=== PATIENT | male | born 1950 | race Caucasian/White ===

== ENCOUNTER → 2017-01-23 | Outpatient (CLI) | payer MEDICARE, BC ==
[~2017-01-23] MED LIST: ASPI-496 PO; CHOL20003 PO; DOXA2TAB9 PO; ENAL2.5T PO; EZET10TA3 PO; FURO20TA3 PO; LEVO75TA PO; METO25TA91 PO; MIRA25TA PO; OMEP40CA6 PO; POTA20TA91 PO; REGADENOSON 0.4 MG/5 ML SYRINGE ONE
== END | disposition home or self-care (01) ==
LOC: CFH 12:29
PROVIDERS: ATTEND Internal Medicine Cardiovascular Disease
DX: R07.9 Chest pain, unspecified (principal); Z95.1 Presence of aortocoronary bypass graft
CPT/HCPCS: 78452; 93017; A9502; J2785

== ENCOUNTER 2017-07-17 14:27 | Inpatient (IN) | payer MEDICARE, BC ==
[~2017-07-17] VITALS: Ht 172.7 cm; Wt 100.4 kg
[~2017-07-17 14:27] MED LIST changes: +CHOL2000 PO; -CHOL20003 PO; +DEXAMETHASONE 4 MG/ML, 1ML ONE; +EZET10TA18 PO; -EZET10TA3 PO; +ONDANSETRON 2MG/ML, 2ML ONE; +PHENYLEPHRINE 10 MG/ML ONE; -REGADENOSON 0.4 MG/5 ML SYRINGE ONE; +SUCCINYLCHOLINE 20 MG/ML, 10ML ONE
[2017-07-17] MEDS ORDERED: LACTATED RINGERS 1,000 ML IV SCH (14:59)
[2017-07-17] MEDS ORDERED: LIDOCAINE 1%, 2ML SQ PRN (15:00)
[2017-07-17] MEDS ORDERED: CYAN50003 PO (15:12)
[2017-07-17] MEDS ORDERED: CARV3.122 PO (15:12)
[2017-07-17] MEDS ORDERED: FLUT50DI INH (15:12)
[2017-07-17] MEDS ORDERED: FOLI-17 PO (15:12)
[2017-07-17] MEDS ORDERED: ACID1TAB PO (15:12)
[2017-07-17] MEDS ORDERED: CALC500T PO (15:12)
[2017-07-17] MEDS ORDERED: IRON15TA3 PO (15:12)
[2017-07-17 15:13] VITALS: BP 132/82
[2017-07-17] MEDS: PLEASE ENTER HEIGHT AND WEIGHT MC SCH ×2 (15:30→16:05)
[2017-07-17] MEDS ORDERED: FENTANYL PF 250 MCG/5ML ONE (16:04)
[2017-07-17] MEDS ORDERED: BACITRACIN 50,000 UNIT ONE (16:07)
[2017-07-17] MEDS ORDERED: PROPOFOL 10 MG/ML, 20ML ONE ×2 (16:07)
[2017-07-17 16:28] LABS: ALBUMIN 2.8 g/dL (3.4-5.0); ANION GAP 6 mmol/L (5-15); CALCIUM 8.9 mg/dL (8.5-10.1); CHLORIDE 108 mmol/L (98-107)
[2017-07-17] MEDS ORDERED: PNEUMOCOCCAL 23 VACCINE IM-VACC ONE (16:30)
[2017-07-17 16:33] LABS: ALANINE AMINOTRANSFERASE 48 U/L (12-78); ALKALINE PHOSPHATASE 280 U/L (45-117); BILIRUBIN,TOTAL 2.3 mg/dL (0.2-1.0); CREATININE 1.07 mg/dL (0.7-1.3); TOTAL PROTEIN 7.4 g/dL (6.4-8.2)
[2017-07-17 16:44] LABS: MD YES; MEAN CORPUSCULAR HEMOGLOBIN 37.5 pg (27.5-34.5); MEAN CORPUSCULAR HGB CONC 34.1 g/dL (33.2-36.2); MEAN CORPUSCULAR VOLUME 109.9 fL (81-97); MEAN PLATELET VOLUME 7.2 fL (7.4-10.4); PLATELET COUNT 71 x10^3/uL (130-400); RED BLOOD COUNT 3.26 x10^6/uL (4.38-5.82); RED CELL DISTRIBUTION WIDTH 16.6 % (9.4-14.8)
[2017-07-17 16:47] LABS: EOS#(MANUAL) 0.18 x10^3/uL (0.0-0.4); EOS% (MANUAL) 7 % (1-7); LYMPH#(MANUAL) 0.49 x10^3/uL (1-3.4); LYMPHS% (MANUAL) 19 % (22-44); MONOS#(MANUAL) 0.23 x10^3/uL (0.3-2.7); MONOS% (MANUAL) 9 % (2-9); SEG#(MANUAL) 1.69 x10^3/uL (1.8-6.8); SEGS% (MANUAL) 65 % (42-75)
[2017-07-17 16:48] LABS: <PLATELET ESTIMATE> DECREASED; <PLT MORPHOLOGY> NORMAL PLT MORPH; ANISOCYTOSIS 1+; POLYCHROMASIA 1+
[2017-07-17] MEDS ORDERED: HYDROmorphone 1 MG/ML, 1ML IV PRN (17:00)
[2017-07-17] MEDS ORDERED: ONDANSETRON 2MG/ML, 2ML IVPush PRN (17:00)
[2017-07-17] MEDS ORDERED: ACETAMINOPHEN 325 MG TABLET PO PRN (17:00)
[2017-07-17] MEDS ORDERED: OXYcodone 5 MG/5 ML ORAL.SOL UDC PO PRN (17:00)
[2017-07-17] MEDS ORDERED: FENTANYL PF 100 MCG/2ML IV PRN (17:00)
[2017-07-17] MEDS ORDERED: VANCOMYCIN 1,000 MG ONE (17:16)
[2017-07-17] MEDS ORDERED: OXYcodone 5 MG/5 ML ORAL.SOL UDC ONE (17:53)
[2017-07-17] MEDS ORDERED: ACETAMINOPHEN 650 MG/20.3 ML UDC ONE (17:53)
[2017-07-17] MEDS ORDERED: FLUTICASONE PROPIONATE INH PRN (19:30)
[2017-07-17 20:06] LABS: MEAN CORPUSCULAR HEMOGLOBIN 37.7 pg (27.5-34.5); MEAN CORPUSCULAR VOLUME 110.8 fL (81-97); MEAN PLATELET VOLUME 7.1 fL (7.4-10.4); PLATELET COUNT 64 x10^3/uL (130-400); RED BLOOD COUNT 3.13 x10^6/uL (4.38-5.82); RED CELL DISTRIBUTION WIDTH 16.4 % (9.4-14.8)
[2017-07-17 20:10] VITALS: BP 166/82
[2017-07-17 20:30] LABS: BASOPHILS # (AUTO) 0.01 x10^3/uL (0-0.1); BASOPHILS % (AUTO) 0 % (0-1); EOSINOPHILS # (AUTO) 0.06 x10^3/uL (0-0.4); EOSINOPHILS % (AUTO) 2 % (1-7); LYMPHOCYTES # (AUTO) 0.46 x10^3/uL (1-3.4); LYMPHOCYTES % (AUTO) 18 % (22-44); MD SCAN; MONOCYTES # (AUTO) 0.13 x10^3/uL (0.2-0.8); MONOCYTES % (AUTO) 5 % (2-9); NEUTROPHILS # (AUTO) 1.95 x10^3/uL (1.8-6.8); NEUTROPHILS % (AUTO) 75 % (42-75)
[2017-07-17] MEDS: POTASSIUM CHLORIDE 20 MEQ TAB.ER.PRT PO SCH (21:00)
[2017-07-17] MEDS: SODIUM CHLORIDE FLUSH 10ML SYR IVF SCH (21:00)
[2017-07-17] MEDS ORDERED: ONDANSETRON ODT 4 MG PO PRN (21:30)
[2017-07-17] MEDS: FUROSEMIDE 20 MG TABLET PO SCH (21:38)
[2017-07-17] MEDS: CARVEDILOL 3.125 MG TABLET PO SCH (21:39)
[2017-07-17] MEDS: CALCIUM CARBONATE 500 MG TABLET PO SCH (21:39)
[2017-07-17] MEDS: ASPIRIN 81 MG TABLET EC PO SCH (21:39)
[2017-07-17] MEDS ORDERED: morphine SULFATE 10 MG/ML, 1ML IVPush PRN (23:00)
[2017-07-17] MEDS ORDERED: VANCOMYCIN PMX 1GM/200ML 200 ML IV ONE (23:30)
[2017-07-18 02:02] VITALS: BP 132/71
[2017-07-18] MEDS: LEVOTHYROXINE 75 MCG TABLET PO SCH (05:44)
[2017-07-18 06:29] LABS: ALBUMIN 2.5 g/dL (3.4-5.0); ANION GAP 7 mmol/L (5-15); CALCIUM 8.9 mg/dL (8.5-10.1); CHLORIDE 109 mmol/L (98-107)
[2017-07-18 06:36] LABS: ALANINE AMINOTRANSFERASE 44 U/L (12-78); ALKALINE PHOSPHATASE 207 U/L (45-117); CREATININE 0.97 mg/dL (0.7-1.3); TOTAL PROTEIN 6.8 g/dL (6.4-8.2)
[2017-07-18] MEDS: OMEPRAZOLE 20 MG CAPSULE.DR PO SCH (07:30)
[2017-07-18 07:32] VITALS: BP 132/69
[2017-07-18] MEDS: CALCIUM CARBONATE 500 MG TABLET PO SCH ×2 (08:59→20:06)
[2017-07-18] MEDS: ASPIRIN 81 MG TABLET EC PO SCH ×2 (09:00→20:06)
[2017-07-18] MEDS: FOLIC ACID 1 MG TABLET PO SCH (09:00)
[2017-07-18] MEDS: FLUTICASONE FUROATE 100MCG/INH INH SCH (09:00)
[2017-07-18] MEDS: CARVEDILOL 3.125 MG TABLET PO SCH ×2 (09:00→20:05)
[2017-07-18] MEDS: ENALAPRIL 2.5MG TABLET PO SCH (09:00)
[2017-07-18] MEDS: FUROSEMIDE 20 MG TABLET PO SCH ×2 (09:00→20:07)
[2017-07-18] MEDS: POTASSIUM CHLORIDE 20 MEQ TAB.ER.PRT PO SCH ×2 (09:01→20:06)
[2017-07-18] MEDS: DOXAZOSIN 2MG TABLET PO SCH (09:01)
[2017-07-18] MEDS: SODIUM CHLORIDE FLUSH 10ML SYR IVF SCH ×2 (09:01→20:07)
[2017-07-18] MEDS: EZETIMIBE 10 MG TABLET PO SCH (09:02)
[2017-07-18 14:11] VITALS: BP 107/60
[2017-07-18] MEDS ORDERED: VANCOMYCIN PER PHARMACY MC PRN (16:30)
[2017-07-18] MEDS ORDERED: PHARMACOKINETIC MONITORING MC PRN (17:00)
[2017-07-18] MEDS: VANCOMYCIN 2,000 MG in SODIUM CHLORIDE 0.9% 500 ML IV SCH (17:32)
[2017-07-18 20:02] VITALS: BP 111/58
[2017-07-19 03:35] VITALS: BP 130/75
[2017-07-19 05:38] LABS: MEAN CORPUSCULAR HGB CONC 34.4 g/dL (33.2-36.2); MEAN CORPUSCULAR VOLUME 110.7 fL (81-97); MEAN PLATELET VOLUME 7.4 fL (7.4-10.4); PLATELET COUNT 59 x10^3/uL (130-400); RED BLOOD COUNT 2.75 x10^6/uL (4.38-5.82); RED CELL DISTRIBUTION WIDTH 16.3 % (9.4-14.8)
[2017-07-19 05:42] LABS: ALBUMIN 2.4 g/dL (3.4-5.0); ANION GAP 6 mmol/L (5-15); CALCIUM 8.6 mg/dL (8.5-10.1); CHLORIDE 107 mmol/L (98-107)
[2017-07-19 05:46] LABS: ALANINE AMINOTRANSFERASE 43 U/L (12-78); ALKALINE PHOSPHATASE 174 U/L (45-117); BILIRUBIN,TOTAL 2.4 mg/dL (0.2-1.0); CREATININE 0.89 mg/dL (0.7-1.3); TOTAL PROTEIN 6.3 g/dL (6.4-8.2)
[2017-07-19] MEDS: LEVOTHYROXINE 75 MCG TABLET PO SCH (05:53)
[2017-07-19 06:00] LABS: BASOPHILS # (AUTO) 0.01 x10^3/uL (0-0.1); BASOPHILS % (AUTO) 0 % (0-1); EOSINOPHILS # (AUTO) 0.11 x10^3/uL (0-0.4); EOSINOPHILS % (AUTO) 3 % (1-7); LYMPHOCYTES # (AUTO) 0.55 x10^3/uL (1-3.4); LYMPHOCYTES % (AUTO) 15 % (22-44); MD SCAN; MONOCYTES # (AUTO) 0.31 x10^3/uL (0.2-0.8); MONOCYTES % (AUTO) 8 % (2-9); NEUTROPHILS # (AUTO) 2.71 x10^3/uL (1.8-6.8); NEUTROPHILS % (AUTO) 73 % (42-75)
[2017-07-19] MEDS: OMEPRAZOLE 20 MG CAPSULE.DR PO SCH (07:30)
[2017-07-19 07:58] VITALS: BP 149/77
[2017-07-19] MEDS: FLUTICASONE FUROATE 100MCG/INH INH SCH (09:00)
[2017-07-19] MEDS: FOLIC ACID 1 MG TABLET PO SCH (09:23)
[2017-07-19] MEDS: POTASSIUM CHLORIDE 20 MEQ TAB.ER.PRT PO SCH ×2 (09:23→20:29)
[2017-07-19] MEDS: ENALAPRIL 2.5MG TABLET PO SCH (09:23)
[2017-07-19] MEDS: CARVEDILOL 3.125 MG TABLET PO SCH ×2 (09:24→20:29)
[2017-07-19] MEDS: ASPIRIN 81 MG TABLET EC PO SCH ×2 (09:24→20:29)
[2017-07-19] MEDS: DOXAZOSIN 2MG TABLET PO SCH (09:24)
[2017-07-19] MEDS: FUROSEMIDE 20 MG TABLET PO SCH ×2 (09:24→20:29)
[2017-07-19] MEDS: CALCIUM CARBONATE 500 MG TABLET PO SCH ×2 (09:25→20:29)
[2017-07-19] MEDS: EZETIMIBE 10 MG TABLET PO SCH (09:25)
[2017-07-19] MEDS: SODIUM CHLORIDE FLUSH 10ML SYR IVF SCH ×2 (09:26→20:29)
[2017-07-19 12:38] VITALS: BP 103/62
[2017-07-19 15:19] LABS: THYROID STIMULATING HORMONE 0.747 mIU/L (0.358-3.740)
[2017-07-19] MEDS: PIPERACILLIN/TAZO/PMX 3.375GM 50 ML IV SCH ×2 (15:25→22:00)
[2017-07-19 15:34] LABS: FOLATE LEVEL > 20.0 ng/mL (3.1-17.5)
[2017-07-19] MEDS: VANCOMYCIN 2,000 MG in SODIUM CHLORIDE 0.9% 500 ML IV SCH (16:39)
[2017-07-19 20:17] VITALS: BP 120/62
[2017-07-20 00:47] VITALS: BP 100/54
[2017-07-20] MEDS: PIPERACILLIN/TAZO/PMX 3.375GM 50 ML IV SCH ×4 (04:09→21:15)
[2017-07-20] MEDS: LEVOTHYROXINE 75 MCG TABLET PO SCH (05:35)
[2017-07-20] MEDS: HYDROcodone/APAP 5/325 TABLET PO PRN ×2 (05:35→10:40)
[2017-07-20 06:01] LABS: MEAN CORPUSCULAR HEMOGLOBIN 37.8 pg (27.5-34.5); MEAN CORPUSCULAR HGB CONC 33.9 g/dL (33.2-36.2); MEAN CORPUSCULAR VOLUME 111.4 fL (81-97); MEAN PLATELET VOLUME 7.6 fL (7.4-10.4); PLATELET COUNT 60 x10^3/uL (130-400); RED BLOOD COUNT 2.97 x10^6/uL (4.38-5.82); RED CELL DISTRIBUTION WIDTH 16.4 % (9.4-14.8)
[2017-07-20 06:06] LABS: ANION GAP 5 mmol/L (5-15); CALCIUM 8.8 mg/dL (8.5-10.1); CHLORIDE 105 mmol/L (98-107)
[2017-07-20 06:08] LABS: CREATININE 1.01 mg/dL (0.7-1.3)
[2017-07-20 06:42] LABS: ANISOCYTOSIS 1+; BASOPHILS # (AUTO) 0.02 x10^3/uL (0-0.1); BASOPHILS % (AUTO) 1 % (0-1); EOSINOPHILS # (AUTO) 0.23 x10^3/uL (0-0.4); EOSINOPHILS % (AUTO) 7 % (1-7); LYMPHOCYTES # (AUTO) 0.57 x10^3/uL (1-3.4); LYMPHOCYTES % (AUTO) 18 % (22-44); MD MORPH REVIEW ONLY; MONOCYTES # (AUTO) 0.33 x10^3/uL (0.2-0.8); MONOCYTES % (AUTO) 10 % (2-9); NEUTROPHILS # (AUTO) 2.04 x10^3/uL (1.8-6.8); NEUTROPHILS % (AUTO) 64 % (42-75); POLYCHROMASIA 1+
[2017-07-20 06:43] LABS: <PLATELET ESTIMATE> DECREASED; <PLT MORPHOLOGY> NORMAL PLT MORPH
[2017-07-20] MEDS: OMEPRAZOLE 20 MG CAPSULE.DR PO SCH (07:30)
[2017-07-20] MEDS: FLUTICASONE FUROATE 100MCG/INH INH SCH (07:33)
[2017-07-20 07:48] VITALS: BP 111/62
[2017-07-20] MEDS: EZETIMIBE 10 MG TABLET PO SCH (09:00)
[2017-07-20] MEDS: SODIUM CHLORIDE FLUSH 10ML SYR IVF SCH ×2 (09:00→21:14)
[2017-07-20] MEDS: DOXAZOSIN 2MG TABLET PO SCH (09:00)
[2017-07-20] MEDS: ASPIRIN 81 MG TABLET EC PO SCH ×2 (09:58→21:14)
[2017-07-20] MEDS: FOLIC ACID 1 MG TABLET PO SCH (09:58)
[2017-07-20] MEDS: FUROSEMIDE 20 MG TABLET PO SCH ×2 (09:58→21:14)
[2017-07-20] MEDS: ENALAPRIL 2.5MG TABLET PO SCH (09:58)
[2017-07-20] MEDS: CARVEDILOL 3.125 MG TABLET PO SCH ×2 (09:58→21:14)
[2017-07-20] MEDS: POTASSIUM CHLORIDE 20 MEQ TAB.ER.PRT PO SCH ×2 (09:58→21:14)
[2017-07-20] MEDS: CALCIUM CARBONATE 500 MG TABLET PO SCH ×2 (09:58→21:14)
[2017-07-20] MEDS ORDERED: BISACODYL 10 MG SUPP PR PRN (10:30)
[2017-07-20] MEDS ORDERED: POLYETHYLENE GLYCOL 17 GM PACKET PO PRN (10:30)
[2017-07-20] MEDS: SENNA/DOCUSATE TABLET PO SCH (11:32)
[2017-07-20 14:25] VITALS: BP 104/46
[2017-07-20] MEDS: VANCOMYCIN 2,000 MG in SODIUM CHLORIDE 0.9% 500 ML IV SCH (16:51)
[2017-07-20 19:45] VITALS: BP 110/58
[2017-07-21 02:00] VITALS: BP 113/60
[2017-07-21] MEDS: PIPERACILLIN/TAZO/PMX 3.375GM 50 ML IV SCH ×4 (04:12→20:41)
[2017-07-21 05:20] LABS: CHLORIDE 105 mmol/L (98-107)
[2017-07-21 05:22] LABS: MEAN CORPUSCULAR HEMOGLOBIN 38.1 pg (27.5-34.5); MEAN CORPUSCULAR HGB CONC 34.4 g/dL (33.2-36.2); MEAN CORPUSCULAR VOLUME 110.9 fL (81-97); MEAN PLATELET VOLUME 7.5 fL (7.4-10.4); PLATELET COUNT 62 x10^3/uL (130-400); RED BLOOD COUNT 2.83 x10^6/uL (4.38-5.82); RED CELL DISTRIBUTION WIDTH 16.1 % (9.4-14.8)
[2017-07-21 05:35] LABS: ALANINE AMINOTRANSFERASE 41 U/L (12-78); ALBUMIN 2.3 g/dL (3.4-5.0); ALKALINE PHOSPHATASE 197 U/L (45-117); ANION GAP 4 mmol/L (5-15); BILIRUBIN,TOTAL 2.1 mg/dL (0.2-1.0); CREATININE 1.29 mg/dL (0.7-1.3); TOTAL PROTEIN 6.1 g/dL (6.4-8.2)
[2017-07-21] MEDS: LEVOTHYROXINE 75 MCG TABLET PO SCH (06:16)
[2017-07-21 06:37] LABS: BASOPHILS # (AUTO) 0.02 x10^3/uL (0-0.1); BASOPHILS % (AUTO) 0 % (0-1); EOSINOPHILS # (AUTO) 0.37 x10^3/uL (0-0.4); EOSINOPHILS % (AUTO) 9 % (1-7); LYMPHOCYTES % (AUTO) 18 % (22-44); MD SCAN; MONOCYTES # (AUTO) 0.52 x10^3/uL (0.2-0.8); MONOCYTES % (AUTO) 13 % (2-9); NEUTROPHILS # (AUTO) 2.37 x10^3/uL (1.8-6.8); NEUTROPHILS % (AUTO) 60 % (42-75)
[2017-07-21 07:11] VITALS: BP 105/66
[2017-07-21] MEDS: OMEPRAZOLE 20 MG CAPSULE.DR PO SCH ×2 (07:30→08:58)
[2017-07-21] MEDS: FLUTICASONE FUROATE 100MCG/INH INH SCH (08:58)
[2017-07-21] MEDS: CARVEDILOL 3.125 MG TABLET PO SCH ×2 (08:58→20:41)
[2017-07-21] MEDS: ENALAPRIL 2.5MG TABLET PO SCH (08:59)
[2017-07-21] MEDS: DOXAZOSIN 2MG TABLET PO SCH (08:59)
[2017-07-21] MEDS: SENNA/DOCUSATE TABLET PO SCH (09:00)
[2017-07-21] MEDS: SODIUM CHLORIDE FLUSH 10ML SYR IVF SCH ×2 (09:00→20:41)
[2017-07-21] MEDS: EZETIMIBE 10 MG TABLET PO SCH (09:00)
[2017-07-21] MEDS: FUROSEMIDE 20 MG TABLET PO SCH (09:00)
[2017-07-21] MEDS: ASPIRIN 81 MG TABLET EC PO SCH ×2 (09:00→20:41)
[2017-07-21] MEDS: FOLIC ACID 1 MG TABLET PO SCH (09:00)
[2017-07-21] MEDS: CALCIUM CARBONATE 500 MG TABLET PO SCH ×2 (09:00→20:41)
[2017-07-21] MEDS: POTASSIUM CHLORIDE 20 MEQ TAB.ER.PRT PO SCH (09:00)
[2017-07-21 14:31] VITALS: BP 124/74
[2017-07-21 19:00] VITALS: BP 143/78
[2017-07-22] MEDS: HYDROcodone/APAP 5/325 TABLET PO PRN (00:14)
[2017-07-22 02:00] VITALS: BP 124/63
[2017-07-22] MEDS: PIPERACILLIN/TAZO/PMX 3.375GM 50 ML IV SCH ×4 (03:16→22:59)
[2017-07-22] MEDS: LEVOTHYROXINE 75 MCG TABLET PO SCH (05:25)
[2017-07-22 05:55] LABS: MEAN CORPUSCULAR HEMOGLOBIN 38.2 pg (27.5-34.5); MEAN CORPUSCULAR HGB CONC 34.6 g/dL (33.2-36.2); MEAN CORPUSCULAR VOLUME 110.5 fL (81-97); MEAN PLATELET VOLUME 7.4 fL (7.4-10.4); PLATELET COUNT 58 x10^3/uL (130-400); RED BLOOD COUNT 2.71 x10^6/uL (4.38-5.82); RED CELL DISTRIBUTION WIDTH 16.6 % (9.4-14.8)
[2017-07-22 05:59] LABS: ALBUMIN 2.2 g/dL (3.4-5.0); ANION GAP 6 mmol/L (5-15); CALCIUM 8.9 mg/dL (8.5-10.1); CHLORIDE 105 mmol/L (98-107); CREATININE 1.06 mg/dL (0.7-1.3)
[2017-07-22 07:20] LABS: BASOPHILS # (AUTO) 0.03 x10^3/uL (0-0.1); BASOPHILS % (AUTO) 1 % (0-1); EOSINOPHILS # (AUTO) 0.23 x10^3/uL (0-0.4); EOSINOPHILS % (AUTO) 7 % (1-7); LYMPHOCYTES # (AUTO) 0.68 x10^3/uL (1-3.4); LYMPHOCYTES % (AUTO) 19 % (22-44); MD SCAN; MONOCYTES # (AUTO) 0.37 x10^3/uL (0.2-0.8); MONOCYTES % (AUTO) 10 % (2-9); NEUTROPHILS # (AUTO) 2.23 x10^3/uL (1.8-6.8); NEUTROPHILS % (AUTO) 63 % (42-75)
[2017-07-22 08:11] VITALS: BP 120/71
[2017-07-22] MEDS: FLUTICASONE FUROATE 100MCG/INH INH SCH ×2 (09:00→10:11)
[2017-07-22] MEDS: EZETIMIBE 10 MG TABLET PO SCH (09:00)
[2017-07-22] MEDS: SENNA/DOCUSATE TABLET PO SCH (09:00)
[2017-07-22] MEDS: SODIUM CHLORIDE FLUSH 10ML SYR IVF SCH ×2 (10:11→20:13)
[2017-07-22] MEDS: CALCIUM CARBONATE 500 MG TABLET PO SCH ×2 (10:12→20:13)
[2017-07-22] MEDS: ASPIRIN 81 MG TABLET EC PO SCH ×2 (10:12→20:14)
[2017-07-22] MEDS: CARVEDILOL 3.125 MG TABLET PO SCH ×2 (10:12→20:13)
[2017-07-22] MEDS: FOLIC ACID 1 MG TABLET PO SCH (10:12)
[2017-07-22] MEDS: FUROSEMIDE 20 MG TABLET PO SCH (10:12)
[2017-07-22] MEDS: DOXAZOSIN 2MG TABLET PO SCH (10:12)
[2017-07-22] MEDS: ENALAPRIL 2.5MG TABLET PO SCH (10:13)
[2017-07-22 13:22] VITALS: BP 99/62
[2017-07-22 19:13] VITALS: BP 123/80
[2017-07-23 02:01] VITALS: BP 120/71
[2017-07-23] MEDS: PIPERACILLIN/TAZO/PMX 3.375GM 50 ML IV SCH ×3 (04:57→18:30)
[2017-07-23] MEDS: LEVOTHYROXINE 75 MCG TABLET PO SCH (04:57)
[2017-07-23 05:11] LABS: MEAN CORPUSCULAR HEMOGLOBIN 38.1 pg (27.5-34.5); MEAN CORPUSCULAR HGB CONC 34.4 g/dL (33.2-36.2); MEAN CORPUSCULAR VOLUME 110.7 fL (81-97); MEAN PLATELET VOLUME 7.5 fL (7.4-10.4); PLATELET COUNT 56 x10^3/uL (130-400); RED BLOOD COUNT 2.72 x10^6/uL (4.38-5.82)
[2017-07-23 05:29] LABS: CHLORIDE 108 mmol/L (98-107)
[2017-07-23 05:37] LABS: ALANINE AMINOTRANSFERASE 32 U/L (12-78); ALBUMIN 2.1 g/dL (3.4-5.0); ALKALINE PHOSPHATASE 166 U/L (45-117); ANION GAP 4 mmol/L (5-15); BILIRUBIN,TOTAL 1.9 mg/dL (0.2-1.0); C-REACTIVE PROTEIN, QUANT 0.42 mg/dL (0.02-0.49); CALCIUM 9.2 mg/dL (8.5-10.1); CREATININE 1.02 mg/dL (0.7-1.3); TOTAL PROTEIN 5.9 g/dL (6.4-8.2)
[2017-07-23 06:17] LABS: BASOPHILS # (AUTO) 0.02 x10^3/uL (0-0.1); BASOPHILS % (AUTO) 1 % (0-1); EOSINOPHILS # (AUTO) 0.25 x10^3/uL (0-0.4); EOSINOPHILS % (AUTO) 7 % (1-7); LYMPHOCYTES # (AUTO) 0.67 x10^3/uL (1-3.4); LYMPHOCYTES % (AUTO) 19 % (22-44); MD SCAN; MONOCYTES # (AUTO) 0.37 x10^3/uL (0.2-0.8); MONOCYTES % (AUTO) 11 % (2-9); NEUTROPHILS # (AUTO) 2.13 x10^3/uL (1.8-6.8); NEUTROPHILS % (AUTO) 62 % (42-75)
[2017-07-23 06:57] LABS: HCT (SEDRATE) 30.1 % (39.2-51.8)
[2017-07-23 07:47] VITALS: BP 138/76
[2017-07-23] MEDS: SODIUM CHLORIDE FLUSH 10ML SYR IVF SCH ×2 (09:00→21:00)
[2017-07-23] MEDS: SENNA/DOCUSATE TABLET PO SCH (09:00)
[2017-07-23] MEDS: EZETIMIBE 10 MG TABLET PO SCH (09:00)
[2017-07-23] MEDS: FLUTICASONE FUROATE 100MCG/INH INH SCH ×2 (09:00→09:29)
[2017-07-23] MEDS: CARVEDILOL 3.125 MG TABLET PO SCH ×2 (09:27→22:07)
[2017-07-23] MEDS: ENALAPRIL 2.5MG TABLET PO SCH (09:28)
[2017-07-23] MEDS: ASPIRIN 81 MG TABLET EC PO SCH ×2 (09:28→22:07)
[2017-07-23] MEDS: FUROSEMIDE 20 MG TABLET PO SCH (09:28)
[2017-07-23] MEDS: FOLIC ACID 1 MG TABLET PO SCH (09:28)
[2017-07-23] MEDS: CALCIUM CARBONATE 500 MG TABLET PO SCH ×2 (09:28→22:07)
[2017-07-23] MEDS: DOXAZOSIN 2MG TABLET PO SCH (09:29)
[2017-07-23 12:53] VITALS: BP 127/73
[2017-07-23 20:00] VITALS: BP 144/74
[2017-07-24] MEDS: PIPERACILLIN/TAZO/PMX 3.375GM 50 ML IV SCH ×2 (00:01→05:28)
[2017-07-24 02:00] VITALS: BP 119/66
[2017-07-24 04:49] LABS: MEAN CORPUSCULAR HEMOGLOBIN 38.1 pg (27.5-34.5); MEAN CORPUSCULAR HGB CONC 34.4 g/dL (33.2-36.2); MEAN CORPUSCULAR VOLUME 110.8 fL (81-97); MEAN PLATELET VOLUME 7.6 fL (7.4-10.4); PLATELET COUNT 55 x10^3/uL (130-400); RED BLOOD COUNT 2.63 x10^6/uL (4.38-5.82); RED CELL DISTRIBUTION WIDTH 15.7 % (9.4-14.8)
[2017-07-24 04:55] LABS: ALANINE AMINOTRANSFERASE 30 U/L (12-78); ALBUMIN 2.1 g/dL (3.4-5.0); ANION GAP 4 mmol/L (5-15); CALCIUM 8.7 mg/dL (8.5-10.1); CHLORIDE 109 mmol/L (98-107); CREATININE 1.01 mg/dL (0.7-1.3)
[2017-07-24 04:58] LABS: ALKALINE PHOSPHATASE 155 U/L (45-117); BILIRUBIN,TOTAL 1.5 mg/dL (0.2-1.0); TOTAL PROTEIN 5.7 g/dL (6.4-8.2)
[2017-07-24] MEDS: LEVOTHYROXINE 75 MCG TABLET PO SCH (05:28)
[2017-07-24 05:35] LABS: BASOPHILS # (AUTO) 0.01 x10^3/uL (0-0.1); BASOPHILS % (AUTO) 0 % (0-1); EOSINOPHILS # (AUTO) 0.26 x10^3/uL (0-0.4); EOSINOPHILS % (AUTO) 7 % (1-7); LYMPHOCYTES # (AUTO) 0.59 x10^3/uL (1-3.4); LYMPHOCYTES % (AUTO) 16 % (22-44); MD SCAN; MONOCYTES % (AUTO) 11 % (2-9); NEUTROPHILS # (AUTO) 2.41 x10^3/uL (1.8-6.8); NEUTROPHILS % (AUTO) 66 % (42-75)
[2017-07-24 08:18] VITALS: BP 146/83
[2017-07-24] MEDS: DOXAZOSIN 2MG TABLET PO SCH (08:20)
[2017-07-24] MEDS: ENALAPRIL 2.5MG TABLET PO SCH (08:20)
[2017-07-24] MEDS: FUROSEMIDE 20 MG TABLET PO SCH (08:20)
[2017-07-24] MEDS: FOLIC ACID 1 MG TABLET PO SCH (08:20)
[2017-07-24] MEDS: EZETIMIBE 10 MG TABLET PO SCH (08:20)
[2017-07-24] MEDS: CARVEDILOL 3.125 MG TABLET PO SCH (08:20)
[2017-07-24] MEDS: CALCIUM CARBONATE 500 MG TABLET PO SCH (08:20)
[2017-07-24] MEDS: ASPIRIN 81 MG TABLET EC PO SCH (08:20)
[2017-07-24] MEDS: FLUTICASONE FUROATE 100MCG/INH INH SCH (08:23)
[2017-07-24] MEDS: SENNA/DOCUSATE TABLET PO SCH (08:23)
[2017-07-24] MEDS: SODIUM CHLORIDE FLUSH 10ML SYR IVF SCH (08:34)
[2017-07-24] MEDS ORDERED: metroNIDAZOLE 500 MG TABLET PO SCH (09:00)
[2017-07-24] MEDS ORDERED: CEFTRIAXONE PMX 2GM/50ML 50 ML IV SCH (09:00)
[2017-07-24 12:33] VITALS: BP 108/58
[2017-07-24] MEDS ORDERED: POTA20PA25 PO (13:51)
[2017-07-24] MEDS ORDERED: FURO20TA3 PO (13:51)
[2017-07-24] MEDS ORDERED: PNEUMOCOCCAL 23 VACCINE IM-VACC ONE (15:00)
== END 2017-07-24 16:38 | disposition home or self-care (01) | DRG 853 ==
LOC: OR 14:27 → ORIP 18:24 → 4WST 19:01 → DCLOUNGE 07-24 16:20
PROVIDERS: ADMIT Hospitalist; ATTEND Hospitalist
PROC: 0KBS0ZZ Excision of Right Lower Leg Muscle, Open Approach (ICD-10-PCS; 2017-07-17)
PROC: 02HV33Z Insertion of Infusion Device into Superior Vena Cava, Percutaneous Approach (ICD-10-PCS; principal; 2017-07-24)
PROC: B5181ZA Fluoroscopy of Superior Vena Cava using Low Osmolar Contrast, Guidance (ICD-10-PCS; 2017-07-24)
PROC: B548ZZA Ultrasonography of Superior Vena Cava, Guidance (ICD-10-PCS; 2017-07-24)
DX: A41.9 Sepsis, unspecified organism (principal); E43 Unspecified severe protein-calorie malnutrition; D61.818 Other pancytopenia; D69.59 Other secondary thrombocytopenia; D89.9 Disorder involving the immune mechanism, unspecified; L03.115 Cellulitis of right lower limb; I11.9 Hypertensive heart disease without heart failure; R16.1 Splenomegaly, not elsewhere classified; K70.30 Alcoholic cirrhosis of liver without ascites; E66.9 Obesity, unspecified; D53.9 Nutritional anemia, unspecified; D63.8 Anemia in other chronic diseases classified elsewhere; E03.9 Hypothyroidism, unspecified; G47.33 Obstructive sleep apnea (adult) (pediatric); K21.9 Gastro-esophageal reflux disease without esophagitis; K59.00 Constipation, unspecified; B96.1 Klebsiella pneumoniae [K. pneumoniae] as the cause of diseases classified elsewhere; N40.0 Benign prostatic hyperplasia without lower urinary tract symptoms; R74.0 Nonspecific elevation of levels of transaminase and lactic acid dehydrogenase [LDH]; I25.10 Atherosclerotic heart disease of native coronary artery without angina pectoris; Z95.1 Presence of aortocoronary bypass graft; Z68.33 Body mass index [BMI] 33.0-33.9, adult; Z23 Encounter for immunization; Z85.820 Personal history of malignant melanoma of skin; Z86.12 Personal history of poliomyelitis; Z71.3 Dietary counseling and surveillance
CPT/HCPCS: 36415; 36569; 71010; 76700; 76937; 77001; 80048; 80053; 80202; 82040; 82607; 82746; 83735; 84100; 84443; 85025; 85651; 86140; 86703; 86704; 86706; 86803; 87040; 87070; 87075; 87077; 87186; 87205; 87340; 87899; 90732; 93005; J0696; J1100; J2405; J2543; J2704; J3010; J3370; J3490; C1751; G0435; J0330; J2370; J7040; J7120

== ENCOUNTER → 2019-10-13 | Outpatient (CLI) | payer MEDICARE, BC ==
[~2019-10-13] MED LIST changes: +ACID1TAB PO; +CALC500T29 PO; +CARV3.122 PO; +CYAN50003 PO; -DEXAMETHASONE 4 MG/ML, 1ML ONE; -EZET10TA18 PO; +EZET10TA70 PO; +FLUT50DI INH; +FOLI-17 PO; +IRON15TA3 PO; +OMEP40CA42 PO; -OMEP40CA6 PO; +OMNIPAQUE 350 MG/ML, 100ML BOTTLE ONE; -ONDANSETRON 2MG/ML, 2ML ONE; -PHENYLEPHRINE 10 MG/ML ONE; +POTA20PA25 PO; -SUCCINYLCHOLINE 20 MG/ML, 10ML ONE
== END | disposition home or self-care (01) ==
LOC: CFH 07:41
PROVIDERS: ATTEND Internal Medicine
DX: I77.811 Abdominal aortic ectasia (principal); K55.1 Chronic vascular disorders of intestine; I77.4 Celiac artery compression syndrome; I70.1 Atherosclerosis of renal artery; M41.85 Other forms of scoliosis, thoracolumbar region; M51.36 Other intervertebral disc degeneration, lumbar region; J84.10 Pulmonary fibrosis, unspecified; K76.81 Hepatopulmonary syndrome; I10 Essential (primary) hypertension; E78.00 Pure hypercholesterolemia, unspecified; M19.90 Unspecified osteoarthritis, unspecified site; I25.10 Atherosclerotic heart disease of native coronary artery without angina pectoris
CPT/HCPCS: 71260; 74174; Q9967